=== PATIENT | female | born 2000 | race Caucasian/White ===

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

== ENCOUNTER 2020-08-07 02:56 | Emergency (ER) | payer OTHER ==
[~2020-08-07] VITALS: Ht 157.5 cm; Wt 77.1 kg
[~2020-08-07 02:56] MED LIST changes: +CEPHALEXIN500 MG PO; +DOXYCYCLINE HY100 MG PO; +NORCO 5-325 TA1 EACH PO
--- OUTSIDE RECORDS SUMMARY | 2020-08-07 03:00 | XMS ---
PreManage Notification: DOMINICK JIMENEZ Security Regional Geodetic Advisor Events No recent Security Events currently on file CRITERIA MET - Group Notification - [facility] - Has Care Guidelines CARE PROVIDERS There are no care providers on record at this time. Ry has no Care Guidelines for this patient. Care History Medical/Surgical 09/19/2019 [facility] CASE MANAGEMENT REFERRAL MADE- PATIENT HAS [facility] AND NO PCP. 04/19/2019 [facility] - [facility]W CONTACTED PATIENT- REGARDS TO PCP NEEDED AND ED USAGE. - [facility]W PROVIDED [facility] CONTACT INFORMATION AND THE PROCESS. [facility]W PROVIDED [facility] CONTACT NUMBER WELL FOR FOLLOWUP. - PATIENT STATED SHE UNDERSTANDS THE ED USAGE VS PCP USAGE AND WOULD CALL TO SET UP A PCP APT SOMETIMES TODAY FOR FOLLOW UP TO THE RECENT ED VISIT. E.D. VISIT COUNT (12 MO.) 2 [facility]. TOTAL 2 NOTE: Visits indicate total known visits. ED/UCC VISIT TRACKING (12 MO.) 08/07/2020 02:57 [facility] [place] TYPE: Emergency COMPLAINT: - SORE THROAT 09/18/2019 19:50 [facility] [place] TYPE: Emergency COMPLAINT: - SORE THROAT DIAGNOSES: - Acute pharyngitis, unspecified - Otitis media, unspecified, left ear - Allergy status to penicillin - Allergy status to sulfonamides status - Acute upper respiratory infection, unspecified - Allergy status to other drugs, medicaments and biological sub - Nicotine dependence, unspecified, uncomplicated INPATIENT VISIT TRACKING (12 MO.) No inpatient visits to display in this time frame [id number]
[2020-08-07] MEDS ORDERED: ZITHROMAX250 MG PO (03:37)
== END 2020-08-07 03:56 | disposition home or self-care (01) ==
LOC: ED 02:56
DX: J03.90 Acute tonsillitis, unspecified (principal); Z87.891 Personal history of nicotine dependence; Z88.0 Allergy status to penicillin; Z88.2 Allergy status to sulfonamides
CPT/HCPCS: 87880; 99283; J1100